=== PATIENT | male | born 1985 | race Caucasian/White ===

== ENCOUNTER 2016-10-09 11:39 | Emergency (ER) | payer SELFPAY ==
[2016-10-09] MEDS ORDERED: methylPREDNISolone SODIUM SUC 125 MG/2 ML VIAL ONE (11:41)
[2016-10-09] MEDS ORDERED: raNITIdine HCL INJ 25 MG/ML VIAL ONE ×2 (11:43→11:53)
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
[2016-10-09] MEDS ORDERED: methylPREDNISolone SODIUM SUC 125 MG/2 ML VIAL IV ONE (11:51)
[2016-10-09] MEDS ORDERED: raNITIdine HCL INJ 50 MG in SODIUM CHLORIDE 0.9% 50ML 50 ML IVPB ONE (11:51)
[2016-10-09] MEDS ORDERED: SODIUM CHLORIDE 0.9% 50ML 50 ML ONE (11:54)
[2016-10-09] MEDS ORDERED: SODIUM CHLORIDE 0.9% 1000ML 1,000 ML IVS ONE (12:03)
[2016-10-09 15:26] VITALS: BP 122/52; TEMP 97; O2SAT 94
== END 2016-10-09 15:08 | disposition home or self-care (01) ==
LOC: ER 11:39
DX: T63.421A Toxic effect of venom of ants, accidental (unintentional), initial encounter (principal); T78.2XXA Anaphylactic shock, unspecified, initial encounter; Y92.007 Garden or yard of unspecified non-institutional (private) residence as the place of occurrence of the external cause
CPT/HCPCS: 36415; 80048; 85025; A4216; J2780; J2930; J7030